=== PATIENT | male | born 1950 | race Caucasian/White ===

== ENCOUNTER 2023-07-14 13:02 | Emergency (ER) | payer MEDICARE, OTHER, SELFPAY ==
[2023-07-14 13:04] VITALS: BP 164/89
[2023-07-14 15:24] LABS: Glucose - Point of Care 106 mg/dl (70-99)
[2023-07-14] MEDS: TORADOL 15 MG IV (15:55)
[2023-07-14 15:57] VITALS: BMI 38.8
[2023-07-14 16:04] LABS: % Basophils 0.6 % (0-2); % Eosinophils 0.8 % (0-6); % Immature Granulocytes 0.5 % (0-0.5); % Lymphocytes 22.2 % (20.5-51.1); % Monocytes 9.3 % (1.7-9.3); % Neutrophils 66.6 % (42.2-75.2); Absolute Basophils 0.1 10^3/uL (0-0.2); Absolute Eosinophils 0.1 10^3/uL (0-0.7); Absolute Immature Granulocytes 0.1 10^3/uL (0-0.05); Absolute Lymphocytes 3.4 10^3/uL (1.2-3.4); Absolute Monocytes 1.4 10^3/uL (0.1-0.6); Absolute Neutrophils 10.2 10^3/uL (1.4-6.5); Hematocrit 41.2 % (39.0-52.0); Hemoglobin 13.4 g/dL (13.0-18.0); Mean Corp Hgb Conc. 32.5 g/dL (33.0-37.0); Mean Corpuscular Hgb 27.5 pg (27.0-31.0); Mean Corpuscular Volume 84.6 fL (80.0-94.0); Mean Platelet Volume 11.3 fL (7.4-10.4); Nucleated Red Blood Cells % 0 % (-); Platelet Count 233 10^3/uL (130-400); Red Blood Cell Count 4.87 10^6/uL (4.70-6.10); Red Cell Dist. Width 15.7 % (11.5-14.5); White Blood Cell Count 15.2 10^3/uL (4.8-10.8)
[2023-07-14 16:17] LABS: Urine Albumin Negative (Neg - Trace); Urine Bilirubin Negative (Negative); Urine Character Clear (Clear); Urine Color Yellow; Urine Glucose Negative (Negative); Urine Ketone Negative (Negative); Urine Leukocyte Negative (Negative); Urine Nitrite Negative (Negative); Urine Occult Blood Negative (Negative); Urine Specific Gravity 1.015 (<1.030); Urine Urobilinogen Negative (Neg - 1+)
[2023-07-14 16:25] LABS: ALT (SGPT) 70 U/L (0-50); AST (SGOT) 41 U/L (17-59); Albumin 4.7 g/dl (3.5-5.0); Alkaline Phosphatase 91 U/L (38-126); Blood Urea Nitrogen 42 mg/dl (9-20); Calcium 10.1 mg/dl (8.4-10.2); Carbon Dioxide 27 mmol/L (22-30); Chloride 102 mmol/L (98-107); Estimated Creatinine Clearance 73 ml/min; Glucose 138 mg/dl (70-99); Potassium 4.1 mmol/L (3.5-5.1); Sodium 140 mmol/L (135-145); Total Bilirubin 0.6 mg/dl (0.2-1.3); Total Protein 7.6 g/dl (6.3-8.2); eGFR > 60.00
[2023-07-14] MEDS: MORPHINE SULFATE 4 MG IV (16:52)
[2023-07-14 18:05] VITALS: BP 144/81
--- NOTE | 2023-07-14 19:07 | ED.GENMED ---
History of Present Illness
General
Chief Complaint: Extremity Pain (non-traumatic)
Source: patient
Exam Limitations: none
Time Seen by Provider: 07/14/23 14:20
Nursing documentation reviewed up to this point in time: agreed with
Travel History
Have you had any contact with someone who has COVID-19?: No
Do you have any symptoms of coronavirus? Fever > 100 degrees, chills, cough, shortness of breath, sore throat, loss of taste or smell, muscle aches, or headache?: No
History of Present Illness
History of Present Illness:
73-year-old male with a past medical history of hypertension, diabetes who presents to the emergency department for evaluation of abdominal pain and subacute right leg pain. Patient reports that he has been dealing with pain in his right lower
extremity for the past 3 to 4 weeks�he reports pain in the anterior calf that radiates up towards his hip. He has not noticed any swelling in his legs. He says he had an outpatient ultrasound ordered by his leather stretcher a few weeks ago that was
negative for any vascular pathology. He says that pain has persisted since then�was started on a steroid Dosepak which he recently finished which did not help very much. He says that over the past day or 2 he has started to have pain in his right
lower abdomen as well as his flank on the right. He decided he would come to the emergency to be assessed for symptoms. He denies any back pain. He denies any nausea or vomiting. He said he had some diarrhea this morning but this is a new
symptom this morning and has not had diarrhea over the past few days or weeks. Denies any recent constipation. He denies any fevers or chills. He denies any dysuria, hematuria, change in urinary frequency. He denies any falls or trauma. He
denies any other complaints.
Review of Systems
Review of Systems
All Other Systems: ROS reviewed and negative except as documented in HPI and ROS
Constitutional: Denies fever or chills
EENT: Denies sore throat or runny nose
Respiratory: Denies cough or trouble breathing
Cardiac: Denies chest pain or palpitations
ABD/GI: Reports abdominal pain and diarrhea; Denies nausea, vomiting or constipated
: Reports flank pain; Denies dysuria, frequency or bleeding
Musculoskeletal: Reports muscle pain (Right leg pain); Denies neck pain or back pain
Neurological: Denies dizzy, headache, weakness or numbness
Phy Exam
Physical Exam
Physical Exam:
General: Awake, alert, oriented x3; no acute distress
Head: Normocephalic, atraumatic
Eyes: Conjunctiva normal, sclera anicteric
Throat: Airway intact, handling secretions
Neck: Trachea midline, supple without meningismus
Lungs: Clear to auscultation bilaterally, no wheezing, rales, rhonchi
Heart: Regular rate and rhythm, no murmurs, gallops, or rubs
Abd: Soft, non distended, tender to palpation right lower abdomen
Back: No CVA tenderness, no thoracic or lumbar tenderness
Neuro: Cranial nerves grossly intact, speech fluid, motor and sensory function intact in all extremity
Skin: no rash, no erythema or induration of the extremities
Extremities: Trace but symmetric edema in the lower extremities mostly around the ankles, equal pulses in all extremities�specifically strong palpable right femoral and DP pulses
Scores
Heart Failure Risk
Heart Failure Risk Score: Not Applicable
Heart Score for Chest Pain Patients
STEMI patient?: Not applicable
Withdrawal Assessment of Alcohol
Withdrawal Assessment Completed?: Not applicable
Course
Orders/Labs/Results
Orders:
Orders
07/14/23 13:16
US Periph Venous LOWER Ext RT Urgent
Comment:
Reason For Exam: pain
07/14/23 15:40
CT Abd/pelvis W Iv Cont Urgent
Comment:
Reason For Exam: right flank/abd pain
Ketorolac [Toradol] 15 mg IV NOW STA
07/14/23 15:55
Complete Blood Count/With Diff Urgent
Comprehensive Metabolic Panel Urgent
Urinalysis Reflex To Culture Urgent
Date Specimen was Collected: 07/14/23
Time Specimen was Collected: 15:49
07/14/23 16:41
Morphine Sulfate 4 mg IV NOW STA
Abnormal Lab Results
07/14/23 07/14/23
15:22 15:55
WBC 15.2 H 10^3/uL
(4.8-10.8)
MCHC 32.5 L g/dL
(33.0-37.0)
RDW 15.7 H %
(11.5-14.5)
MPV 11.3 H fL
(7.4-10.4)
Abs Immat Gran (auto) 0.1 H 10^3/uL
(0-0.05)
Absolute Neuts (auto) 10.2 H 10^3/uL
(1.4-6.5)
Absolute Monos (auto) 1.4 H 10^3/uL
(0.1-0.6)
BUN 42 H mg/dl
(9-20)
Glucose 138 H mg/dl
(70-99)
ALT 70 H U/L
(0-50)
POC Glucose 106 H mg/dl
(70-99)
07/14/23 15:55
07/14/23 15:55
Vital Signs
Initial and Last Documented VS:
Initial Vital Signs
Temp Pulse Resp BP Pulse Ox
36.6 C 95 18 164/89 98
07/14/23 13:04 07/14/23 13:04 07/14/23 13:04 07/14/23 13:04 07/14/23 13:04
Last Documented Vital Signs
Temp Pulse Resp BP Pulse Ox
36.6 C 76 18 144/81 96
07/14/23 13:04 07/14/23 18:05 07/14/23 18:05 07/14/23 18:05 07/14/23 18:05
MDM/Problems Addressed
Differential Diagnosis Includes:
Leg pain: Sciatica/radiculopathy, DVT, muscular strain, claudication
Abdominal pain: Sciatica/radiculopathy, muscular pain, kidney stone, appendicitis, diverticulitis, hernia
MDM/Problems Addressed:
73-year-old male presents for evaluation of subacute right leg pain for the past few weeks that has not improved with steroid Dosepak, now presenting with lower abdominal pain on the right associated with some diarrhea this morning. Hypertensive
but otherwise normal vitals. Physical exam as above. Check labs including CBC and CMP. Will check urinalysis. Will check DVT study on the right. Will check CT of the abdomen pelvis. Will treat pain. Will reassess after the above.
Labs reviewed: CBC shows leukocytosis to 15.2 in the setting of recent steroid pack. CMP shows mild hyperglycemia but no clinically significant abnormalities. Urinalysis negative for infection. DVT study is negative. CT of the abdomen pelvis
shows no acute pathology to account for patient's symptoms. Patient's pain is much better controlled after treatment here in the emergency room. Regarding subacute leg pain: He has no signs of vascular compromise or claudication�he has brisk
capillary refill and strong palpable distal pulses in the right lower extremity and there is no exertional component to his symptoms. Could be muscular pain or possibly radiculopathy. Regarding his abdominal pain with no acute intra-abdominal
emergency suspect more likely related to either referred pain from radiculopathy or perhaps a mild enteritis given his diarrhea this morning. His blood pressure is normalized, vital signs otherwise very stable and his pain is well-controlled here�I
see no clear indication for admission at this point, I think he is stable for discharge I advised him to follow-up with his primary care physician for further workup of his symptoms. He feels comfortable with this plan. We spoke about return
precautions and all questions answered.
*Radiology
Radiology exam reviewed: radiology read reviewed
*Pulse Oximetry
Patient hypoxic: no
*Critical Care Note
Total Time (30-74mins, 75-104mins- exclusive of procedures): Not Applicable
Data Reviewed
Source: patient and family
ED Attending Note
-
Portions of this chart may have been created with voice recognition software.� Occasional wrong word or��sound alike� substitutions may have occurred due to the inherent limitations of voice recognition software.
Discharge Plan
Departure
Patient Disposition: Home (Routine Discharge)
Date of Disposition: 07/14/23
Time of Disposition: 19:17
Patient with high blood pressure during this ER visit?: Yes
Discharge Problem:
Leg pain, right, Abdominal pain, Radiculopathy
Instructions: Radiculopathy (DC), Abdominal Pain, Adult ED
Prescriptions:
New
tramadol 50 mg tablet
50 mg PO BID PRN (Reason: Pain) Qty: 10 0RF
Referrals:
Hamida Busby MD [Family Provider] - Follow up in 2-3 days
Activity Restrictions/Additional Instructions:
Thank you for visiting the Emergency Department at [facility].
1. Please schedule a follow up appointment as directed. Call first thing tomorrow morning to make an appointment.
2. If indicated, please take your medications as instructed and indicated on discharge paperwork.
3. If any of your symptoms do not improve, or persist, or become more severe within 6-12 hours, please return to the emergency department for further care.
4. Please return to the emergency department if you develop a headache, neck pain/stiffness, fever greater than 100.4F, chest pain, shortness of breath, persistent nausea, vomiting, slurred speech, difficulty walking, numbness/tingling, weakness,
signs of infection or any other symptoms that are worrisome to you.
Please call [phone] if you have any questions.
Interventions
Interventions:
*Risk Screen - Suicide Last Done: 07/14/23 13:33
*General Assessment Last Done: 07/14/23 13:04
*Neglect/Abuse Screening Last Done: 07/14/23 13:33
ED- Fall Risk Assessment Last Done: 07/14/23 15:58
*ED COVID-19 Vaccine History Last Done: 07/14/23 13:04
ED-Skin Assessment Last Done: 07/14/23 13:33
ED-Peripheral Vascular Assessment Last Done: 07/14/23 15:58
ED-Musculoskeletal Assessment Last Done: 07/14/23 15:58
Discharge Date and Time
Print Language: HEBREW
[2023-07-14 19:25] VITALS: BP 149/78
== END 2023-07-14 19:31 | disposition home or self-care (01) ==
LOC: EMR 13:02
PROVIDERS: EMERGENCY PHYSICIAN Emergency Medicine; FAMILY PHYSICIAN Family Medicine
DX: M79.604 Pain in right leg (principal); M54.10 Radiculopathy, site unspecified; M25.551 Pain in right hip; R10.9 Unspecified abdominal pain; R19.7 Diarrhea, unspecified; R60.0 Localized edema; I10 Essential (primary) hypertension; E11.9 Type 2 diabetes mellitus without complications
CPT/HCPCS: 99285; 96375; 96374; 74177; 80053; 81003; 82962; 85025; 93971; Q9967